=== PATIENT | female | born 1980 | race Caucasian/White ===

== ENCOUNTER 2018-08-24 06:40 | Day surgery (SDC) | payer OTHER ==
[~2018-08-24 06:40] MED LIST: SYNTHROID88 MCG PO
== END 2018-08-24 17:15 | disposition home or self-care (01) ==
LOC: CIR.AMB 06:40
DX: N93.8 Other specified abnormal uterine and vaginal bleeding (principal)

== ENCOUNTER 2020-10-23 10:00 | Outpatient (CLI) | payer OTHER | END 2020-10-23 10:35 | disposition home or self-care (01) | LOC: SONOGRAMA 10:00 | PROVIDERS: ATTEND Pathology Anatomic Pathology & Clinical Pathology | DX: E04.1 Nontoxic single thyroid nodule (principal) ==